=== PATIENT | male | born 1975 ===

== ENCOUNTER 2025-10-05 09:02 | Emergency (ER) | payer MEDICAID ==
[~2025-10-05] VITALS: Ht 172.7 cm; Wt 75.0 kg
[2025-10-05 09:12] VITALS: O2SAT 100
[2025-10-05] MEDS: ACETAMINOPHEN 325MG TABLET PO ONE (09:55)
[2025-10-05] MEDS: IBUPROFEN 400MG TABLET PO ONE (09:56)
[2025-10-05 10:27] VITALS: BP 153/99; PULSE 76; RESP 18; TEMP 36.7; O2SAT 100
== END 2025-10-05 10:30 | disposition home or self-care (01) ==
LOC: ER 09:02
DX: S09.8XXA Other specified injuries of head, initial encounter (principal); R51.9 Headache, unspecified; I10 Essential (primary) hypertension; X58.XXXA Exposure to other specified factors, initial encounter; Y93.89 Activity, other specified; Y92.89 Other specified places as the place of occurrence of the external cause; Y99.8 Other external cause status
CPT/HCPCS: 99283